=== PATIENT | female | born 1995 | race Caucasian/White ===

== ENCOUNTER 2018-07-18 11:19 | Emergency (ER) | payer MEDICAID, OTHER ==
[~2018-07-18] VITALS: Ht 152.4 cm; Wt 81.6 kg
--- NOTE | 2018-07-18 11:29 | NUR ---
PT IS IN ROOM #1B. DR PEARSON EVALUATED THE PT.
[2018-07-18] MEDS ORDERED: LEVETIRACETAM 250 MG TABLET PO ONE (11:30)
[2018-07-18] MEDS ORDERED: LORAZEPAM 2 MG/1 ML VIAL IV ONE (11:30)
[2018-07-18] MEDS ORDERED: LORAZEPAM 2 MG/1 ML VIAL ONE (11:39)
[2018-07-18] MEDS ORDERED: LEVETIRACETAM 250 MG TABLET ONE (11:40)
[2018-07-18 11:58] LABS: CREATININE 0.8 mg/dL (0.6-1.3); POTASSIUM 4.1 mmol/L (3.5-5.1)
--- NOTE | 2018-07-18 12:54 | NUR ---
PT WAS D/C'd TO HOME. D/C INSTRUCTIONS GIVEN TO THE PT. NOS/S OF SEIZURES. NO S/S OF ACUTE DISTRES AT THIS TIME. GAIT IS STABLE.
[2018-07-18 12:55] VITALS: BP 132/64
== END 2018-07-18 12:57 | disposition home or self-care (01) ==
LOC: ER 11:19
DX: G40.89 Other seizures (principal)
CPT/HCPCS: 36415; 80048; 93005; 96374; 99284; J2060; A4663